=== PATIENT | male | born 1960 | race Caucasian/White ===

== ENCOUNTER 2023-06-11 09:34 | Emergency (ER) | payer OTHER ==
[~2023-06-11] VITALS: Ht 167.6 cm; Wt 77.6 kg
[2023-06-11 09:50] VITALS: BP 113/79; PULSE 74; RESP 20; TEMP 97.8; O2SAT 100
[2023-06-11] MEDS ORDERED: [UNRECOGNIZED DRUG - CODE] PO (09:50)
[2023-06-11] MEDS ORDERED: FAMOTIDINE 20 MG TAB PO ONE (10:35)
[2023-06-11] MEDS ORDERED: methylPREDNISolone SS 125 MG in WATER STERILE 2 ML IM ONE (10:35)
[2023-06-11] MEDS ORDERED: EPINEPHrine 1 MG/ML AMP IM ONE (10:35)
[2023-06-11] MEDS ORDERED: WATER STERILE 10 ML MC ONE (10:52)
[2023-06-11] MEDS ORDERED: methylPREDNISolone SS 125 MG/2 ML VIAL ONE (10:52)
[2023-06-11 11:50] VITALS: BP 136/85; PULSE 70; RESP 16; TEMP 97.8; O2SAT 98
[2023-06-11] MEDS ORDERED: PRED20TA5 PO (11:58)
== END 2023-06-11 12:18 | disposition home or self-care (01) ==
LOC: MED 09:34
DX: T78.3XXA Angioneurotic edema, initial encounter (principal); E11.9 Type 2 diabetes mellitus without complications; E78.5 Hyperlipidemia, unspecified; Z79.899 Other long term (current) drug therapy; Z88.8 Allergy status to other drugs, medicaments and biological substances
CPT/HCPCS: 96372; 99291; J0171; J2930; Q0163